=== PATIENT | female | born 1990 | race Hispanic/Latino ===

== ENCOUNTER 2021-07-27 06:27 | Observation (INO) | payer OTHER, BC ==
[2021-07-27 07:15] VITALS: BMI 34.7
[2021-07-27] MEDS ORDERED: hydrALAZINE 20 MG/ML VIAL SLOW IVP PRN (08:48)
[2021-07-27] MEDS ORDERED: Promethazine HCl 25 MG/ML VIAL IM PRN (08:58)
[2021-07-27] MEDS ORDERED: Acetaminophen 325 MG TAB PO PRN (08:58)
[2021-07-27] MEDS ORDERED: Ondansetron PF 4 MG/2 ML Vial IVP PRN (08:58)
[2021-07-27] MEDS ORDERED: Acetaminophen 500 MG TAB PO PRN (08:58)
[2021-07-28] MEDS ORDERED: Zolpidem Tartrate 5 MG TAB PO PRN (00:17)
== END 2021-07-28 09:33 | disposition home health service (06) ==
LOC: CSHLD/OP 06:27 → CSHLD 22:34
PROVIDERS: ADMIT Obstetrics & Gynecology; ATTEND Obstetrics & Gynecology
DX: O99.891 Other specified diseases and conditions complicating pregnancy (principal); O36.8390 Maternal care for abnormalities of the fetal heart rate or rhythm, unspecified trimester, not applicable or unspecified; R55 Syncope and collapse; R10.30 Lower abdominal pain, unspecified; M54.50 Low back pain, unspecified; Z3A.38 38 weeks gestation of pregnancy; Z79.899 Other long term (current) drug therapy; Z90.49 Acquired absence of other specified parts of digestive tract; W18.30XA Fall on same level, unspecified, initial encounter; Y92.89 Other specified places as the place of occurrence of the external cause
CPT/HCPCS: 76815; 76819; 99285; G0378

== ENCOUNTER 2021-08-02 11:35 | Outpatient (CLI) | payer BC, OTHER ==
[2021-08-03 00:36] LABS: SARS-CoV-2 PCR by NAA Not Detected (NotDetected)
== END 2021-08-02 11:36 | disposition home or self-care (01) ==
LOC: CSHLAB 11:35
PROVIDERS: ATTEND Obstetrics & Gynecology
DX: Z01.812 Encounter for preprocedural laboratory examination (principal); Z20.822 Contact with and (suspected) exposure to COVID-19
CPT/HCPCS: U0003; U0005

== ENCOUNTER 2021-08-06 05:30 | Inpatient (IN) | payer BC, SELFPAY ==
[2021-08-06] MEDS ORDERED: Acetaminophen 500 MG TAB PO PRN (18:40)
[2021-08-06] MEDS ORDERED: Methylergonovine 0.2 MG/ML VIAL IM PRN (18:40)
[2021-08-06] MEDS ORDERED: Carboprost 250 MCG/ML AMP IM PRN (18:40)
[2021-08-06] MEDS ORDERED: HYDROcodone/Acetaminophen 5/325 mg Tablet PO PRN ×2 (18:40)
[2021-08-06] MEDS ORDERED: Butorphanol Tartrate 1 MG/ML VIAL SLOW IVP PRN (18:40)
[2021-08-06] MEDS ORDERED: hydrALAZINE 20 MG/ML VIAL SLOW IVP PRN (18:40)
[2021-08-06] MEDS ORDERED: Docusate 100 MG CAP PO PRN (18:40)
[2021-08-06] MEDS ORDERED: Ondansetron PF 4 MG/2 ML Vial IVP PRN (18:40)
[2021-08-06] MEDS ORDERED: Lidocaine 1% (PF) 30 ML VIAL SC PRN (18:40)
[2021-08-06] MEDS ORDERED: Diphenoxylate HCl/Atropine Tablet PO PRN ×2 (18:40)
[2021-08-06] MEDS ORDERED: Promethazine HCl 25 MG/ML VIAL IM PRN (18:40)
[2021-08-06] MEDS ORDERED: Misoprostol 200 MCG TAB PR PRN (18:40)
[2021-08-06] MEDS ORDERED: Ibuprofen 800 MG TAB PO PRN (18:40)
[2021-08-06] MEDS ORDERED: NS w/ Oxytocin 30 units 500 ML IV SCH (18:45)
[2021-08-06] MEDS ORDERED: NS w/ Oxytocin 30 units 500 ML IVPB SCH (18:45)
[2021-08-06 19:40] VITALS: BMI 35.2
[2021-08-06] MEDS: Lactated Ringer's 1,000 ML IV SCH (20:11)
[2021-08-06] MEDS: Misoprostol 100 MCG TAB VAG SCH (20:20)
[2021-08-06 20:48] LABS: Hemoglobin 12.2 g/dL (12.0-15.5); Mean Corpuscular HGB CONC 33.1 g/dL (32.0-36.0); Mean Corpuscular Hemoglobin 30.7 pg (27.0-33.0); Mean Corpuscular Volume 92.9 fl (81.6-98.3); Mean Platelet Volume 11.1 fl (7.4-10.4); Platelet Count 295 10x3/uL (150-450); RBC Distribution Width 13.7 % (11.5-14.5); Red Blood Cell (RBC) Count 3.97 10x6/uL (3.90-5.03); White Blood Cell (WBC) Count 7.5 10x3/uL (3.5-10.5)
[2021-08-06 21:24] LABS: Hep B Surf Ag Non-Reactive S/CO (NonReactive); Syphilis Antibody Nonreactive (Nonreactive); Syphilis Antibody Index 0.04 S/CO (<1.00 Non-Reactive)
[2021-08-06 21:28] LABS: HBSAg Index 0.18 S/CO (0-0.99)
[2021-08-07] MEDS: Misoprostol 100 MCG TAB VAG SCH ×4 (01:19→15:35)
[2021-08-07] MEDS ORDERED: Fentanyl 2 mcg/Bup 0.1% Cadd 100 ML ONE (03:09)
[2021-08-07] MEDS ORDERED: Hydrocerin (Eucerin) Cream 120 gm Jar TOP PRN (03:57)
[2021-08-07] MEDS ORDERED: Naloxone HCl 0.4 mg/ml Vial IVP PRN ×2 (03:57)
[2021-08-07] MEDS ORDERED: Acetaminophen 325 MG TAB PO PRN (03:57)
[2021-08-07] MEDS ORDERED: Ondansetron PF 4 MG/2 ML Vial IVP PRN ×2 (03:57→15:35)
[2021-08-07] MEDS ORDERED: diphenhydrAMINE 50 MG/ML VIAL IVP PRN (03:57)
[2021-08-07] MEDS ORDERED: ePHEDrine Sulfate 50 MG/10 ML VIAL SLOW IVP PRN (03:57)
[2021-08-07] MEDS ORDERED: Promethazine HCl 25 MG/ML VIAL IM PRN ×2 (03:57→15:35)
[2021-08-07] MEDS ORDERED: Lactated Ringer's 500 ML IV PRN (03:57)
[2021-08-07] MEDS ORDERED: Fentanyl 2 mcg/Bupivacaine 0.1% Cassette 100 ML EPIDURAL SCH (04:00)
[2021-08-07] MEDS ORDERED: Communication Order-Pharmacy FS SCH (04:00)
[2021-08-07] MEDS: Lactated Ringer's 1,000 ML IV SCH ×2 (04:18→12:56)
[2021-08-07] MEDS: NS w/ Oxytocin 30 units 500 ML IV SCH ×2 (09:10→10:35)
[2021-08-07 12:16] LABS: HIV (1/2) Antibody/Antigen Non-Reactive (NonReactive); HIV 1/2 INDEX 0.08 S/CO (<1.00)
[2021-08-07] MEDS ORDERED: Methylergonovine 0.2 MG/ML VIAL IM PRN (15:35)
[2021-08-07] MEDS ORDERED: HYDROcodone/Acetaminophen 5/325 mg Tablet PO PRN ×2 (15:35)
[2021-08-07] MEDS ORDERED: Zolpidem Tartrate 5 MG TAB PO PRN (15:35)
[2021-08-07] MEDS ORDERED: Milk Of Magnesia 30 ML UDCUP PO PRN (15:35)
[2021-08-07] MEDS ORDERED: hydrALAZINE 20 MG/ML VIAL SLOW IVP PRN (15:35)
[2021-08-07] MEDS ORDERED: NS w/ Oxytocin 30 units 500 ML IV SCH (15:35)
[2021-08-07] MEDS ORDERED: Boostrix 0.5 ML (Tdap) VIAL IM ONE (15:35)
[2021-08-07] MEDS ORDERED: Misoprostol 200 MCG TAB VAG PRN (15:35)
[2021-08-07] MEDS ORDERED: Benzocaine-Menthol 82.5 ML CAN TOP PRN (15:35)
[2021-08-07] MEDS ORDERED: Bisacodyl 10 MG SUPP PR PRN (15:35)
[2021-08-07] MEDS ORDERED: Measles/Mumps/Rubella 10 MCG/0.5 ML VIAL SC ONE (15:35)
[2021-08-07] MEDS ORDERED: Preparation H Ointment 28 GM TUBE PR PRN (15:35)
[2021-08-07] MEDS ORDERED: Varicella virus, LIVE 0.5 ML VIAL SC ONE (15:35)
[2021-08-07] MEDS ORDERED: diphenhydrAMINE 25 MG CAP PO PRN (15:35)
[2021-08-07] MEDS ORDERED: Lanolin Ointment 7 GM TUBE TOP PRN (15:35)
[2021-08-07] MEDS: Ferrous Sulfate 325 MG TAB PO SCH (16:52)
[2021-08-07] MEDS: CEFAZOLIN 2 GM in Premix Bag 1 BAG IVPB SCH (20:28)
[2021-08-07] MEDS: Ibuprofen 800 MG TAB PO SCH (21:48)
[2021-08-07] MEDS: Docusate Calcium (SURFAK) 240 MG CAP PO SCH (21:48)
[2021-08-08] MEDS: CEFAZOLIN 2 GM in Premix Bag 1 BAG IVPB SCH ×2 (04:05→12:06)
[2021-08-08] MEDS: Ibuprofen 800 MG TAB PO SCH ×2 (05:32→13:39)
[2021-08-08 06:04] LABS: Hemoglobin 10.9 g/dL (12.0-15.5); Mean Corpuscular HGB CONC 33.3 g/dL (32.0-36.0); Mean Corpuscular Hemoglobin 31.5 pg (27.0-33.0); Mean Corpuscular Volume 94.5 fl (81.6-98.3); Mean Platelet Volume 10.9 fl (7.4-10.4); Platelet Count 246 10x3/uL (150-450); RBC Distribution Width 13.7 % (11.5-14.5); Red Blood Cell (RBC) Count 3.46 10x6/uL (3.90-5.03); White Blood Cell (WBC) Count 14.4 10x3/uL (3.5-10.5)
[2021-08-08 07:50] VITALS: BP 112/63; TEMP 98.3
[2021-08-08] MEDS: Docusate Calcium (SURFAK) 240 MG CAP PO SCH (08:05)
[2021-08-08] MEDS: Ferrous Sulfate 325 MG TAB PO SCH ×2 (08:09→17:01)
[2021-08-08] MEDS ORDERED: Prenatal Vitamin 1 TAB PO SCH (09:00)
== END 2021-08-08 18:14 | disposition home or self-care (01) | DRG 807 ==
LOC: CSHLD 19:13 → CSHPP 08-07 13:13
PROVIDERS: ADMIT Obstetrics & Gynecology; ATTEND Obstetrics & Gynecology
PROC: 3E033VJ Introduction of Other Hormone into Peripheral Vein, Percutaneous Approach (ICD-10-PCS; principal; 2021-08-07)
PROC: 10E0XZZ Delivery of Products of Conception, External Approach (ICD-10-PCS; 2021-08-07)
DX: O70.1 Second degree perineal laceration during delivery (principal); Z37.0 Single live birth; Z3A.39 39 weeks gestation of pregnancy
CPT/HCPCS: 36415; 85027; 86762; 86780; 86850; 86900; 86901; 87340; 87389; J0595; J0690; J2590; J7120

== ENCOUNTER 2021-08-06 05:35 | Day surgery (SDC) | payer BC, OTHER ==
[2021-08-06 06:20] VITALS: BMI 35.2
[2021-08-06] MEDS ORDERED: hydrALAZINE 20 MG/ML VIAL SLOW IVP PRN (10:15)
== END 2021-08-06 08:38 | disposition home or self-care (01) ==
LOC: CSHLD/OP 05:35
PROVIDERS: ATTEND Obstetrics & Gynecology
DX: O47.1 False labor at or after 37 completed weeks of gestation (principal); Z3A.39 39 weeks gestation of pregnancy